=== PATIENT | female | born 1980 | race Caucasian/White ===

== ENCOUNTER 2017-02-06 20:25 | Emergency (ER) | payer OTHER ==
[2017-02-06 22:13] LABS: BASOPHIL 0.3 % (0-2); EOSINOPHIL 3.7 % (0-5); HCT 36.8 % (37.0-47.0); HGB 12.1 g/dl (12.5-16.0); LYMPHOCYTE 32.4 % (15-48); MCH 31.4 pg (25.0-31.0); MCHC 32.9 g/dL (32.0-36.0); MCV 95.6 fL (78.0-100.0); MONOCYTE 6.6 % (0-12); MPV 8.8 fL (6.0-9.5); PLT 399 K/uL (150-400); RBC 3.85 M/uL (4.20-5.40); RDW 12.6 % (11.5-14.0); WBC 7.5 K/uL (4.0-10.5)
[2017-02-06 22:30] LABS: ALBUMIN 4.4 g/dL (3.5-5.0); BILIRUBIN - TOTAL 0.2 mg/dL (0.1-1.0); CREATININE 0.6 mg/dL (0.5-1.0); GLOBULIN (CALCULATION) 2.6 g/dL (2.2-4.2); POTASSIUM 3.7 mmol/L (3.5-5.1)
== END 2017-02-06 22:44 | disposition home or self-care (01) ==
LOC: FER 20:25
PROVIDERS: Emergency Medicine
DX: M94.0 Chondrocostal junction syndrome [Tietze] (principal); R51 Headache; R53.1 Weakness; R05 Cough; F17.200 Nicotine dependence, unspecified, uncomplicated
CPT/HCPCS: 36415; 71010; 80053; 84484; 85025; 87804; 87899; 93005

== ENCOUNTER 2021-05-08 07:06 | Emergency (ER) | payer OTHER ==
[2021-05-08 08:12] LABS: BASOPHIL 0.4 % (0-2); EOSINOPHIL 2.4 % (0-5); HCT 42.9 % (37.0-47.0); HGB 13.9 g/dl (12.5-16.0); LYMPHOCYTE 26.5 % (15-48); MCHC 32.4 g/dL (32.0-36.0); MCV 98.8 fL (78.0-100.0); MONOCYTE 4.5 % (0-12); MPV 8.9 fL (6.0-9.5); NEUTROPHIL 65.6 % (41-80); NRBC 0; PLT 406 K/uL (150-400); RBC 4.34 M/uL (4.20-5.40); RDW 13.4 % (11.5-14.0); WBC 11.1 K/uL (4.0-10.5)
[2021-05-08 08:25] LABS: ALBUMIN 3.8 g/dL (3.4-5.0); BILIRUBIN - TOTAL 0.2 mg/dL (0.2-1.0); BUN/CREAT RATIO (CALC) 14.9 RATIO; CREATININE 0.74 mg/dL (0.51-0.95); GLOBULIN (CALCULATION) 3.6 g/dL; POTASSIUM 4.3 mmol/L (3.5-5.1); TOTAL PROTEIN 7.4 g/dL (6.4-8.2)
[2021-05-08 08:33] LABS: BILIRUBIN NEGATIVE (NEGATIVE); BLOOD 3+ Ery/uL (NEGATIVE); CLARITY CLEAR (CLEAR); COLOR YELLOW (YELLOW); GLUCOSE (U) NORMAL (NORMAL); LEUKOCYTES NEGATIVE Leu/uL (NEGATIVE); NITRITE NEGATIVE (NEGATIVE); PROTEIN NEGATIVE (NEGATIVE); SPECIFIC GRAVITY >=1.030 (1.001-1.030); UROBILINOGEN 0.2 mg/dL (0.2-1.0); pH 5.5 (5.0-9.0)
[2021-05-08 08:41] LABS: BACTERIA TRACE
[2021-05-08] MEDS ORDERED: METRONIDAZOLE500 MG PO (10:19)
[2021-05-08] MEDS ORDERED: ZOFRAN4 M1 PO (10:19)
[2021-05-08] MEDS ORDERED: NORCO 5-325 TA1 EACH PO (10:19)
[2021-05-08] MEDS ORDERED: VIBRAMYCIN100 MG PO (10:19)
== END 2021-05-08 11:23 | disposition home or self-care (01) ==
LOC: FER 07:06
PROVIDERS: Emergency Medicine
DX: R10.31 Right lower quadrant pain (principal); R11.10 Vomiting, unspecified; F17.210 Nicotine dependence, cigarettes, uncomplicated; Z98.890 Other specified postprocedural states; Z88.6 Allergy status to analgesic agent
CPT/HCPCS: 36415; 76830; 80053; 81001; 83690; 83735; 84145; 85025; J0696; J1170; J2405; J7030

== ENCOUNTER 2021-08-27 11:06 | Emergency (ER) | payer OTHER ==
[~2021-08-27 11:06] MED LIST: METRONIDAZOLE500 MG PO; NORCO 5-325 TA1 EACH PO; VIBRAMYCIN100 MG PO; ZOFRAN4 M1 PO
[2021-08-27 12:12] LABS: BASOPHIL 0.6 % (0-2); BILIRUBIN NEGATIVE (NEGATIVE); BLOOD NEGATIVE Ery/uL (NEGATIVE); CLARITY CLEAR (CLEAR); COLOR YELLOW (YELLOW); EOSINOPHIL 2.6 % (0-5); GLUCOSE (U) NORMAL (NORMAL); HCT 39.5 % (37.0-47.0); HGB 12.8 g/dl (12.5-16.0); LEUKOCYTES NEGATIVE Leu/uL (NEGATIVE); LYMPHOCYTE 21.2 % (15-48); MCH 31.4 pg (25.0-31.0); MCHC 32.4 g/dL (32.0-36.0); MCV 97.1 fL (78.0-100.0); MONOCYTE 6.4 % (0-12); MPV 8.8 fL (6.0-9.5); NEUTROPHIL 68.7 % (41-80); NITRITE NEGATIVE (NEGATIVE); NRBC 0; PLT 346 K/uL (150-400); PROTEIN NEGATIVE (NEGATIVE); RBC 4.07 M/uL (4.20-5.40); RDW 13.2 % (11.5-14.0); UROBILINOGEN 0.2 mg/dL (0.2-1.0); WBC 10.8 K/uL (4.0-10.5); pH 5.5 (5.0-9.0)
[2021-08-27 12:30] LABS: BILIRUBIN - TOTAL 0.3 mg/dL (0.2-1.0); BUN/CREAT RATIO (CALC) 12.2 RATIO; CREATININE 1.15 mg/dL (0.51-0.95); GLOBULIN (CALCULATION) 3.6 g/dL; POTASSIUM 4.5 mmol/L (3.5-5.1); TOTAL PROTEIN 7.6 g/dL (6.4-8.2)
[2021-08-27] MEDS ORDERED: ZOFRAN4 M1 PO (14:50)
[2021-08-27] MEDS ORDERED: NORCO 5-325 TA1 EACH PO (14:50)
== END 2021-08-27 15:27 | disposition home or self-care (01) ==
LOC: FER 11:06
PROVIDERS: Emergency Medicine
DX: N13.30 Unspecified hydronephrosis (principal); R10.84 Generalized abdominal pain; F17.210 Nicotine dependence, cigarettes, uncomplicated; Z88.6 Allergy status to analgesic agent
CPT/HCPCS: 36415; 80053; 81003; 82150; 83690; 85025; J2270; J2405; J7030; Q9967